=== PATIENT | male | born 1970 | race Caucasian/White ===

== ENCOUNTER 2021-11-24 17:00 | Emergency (ER) | payer OTHER ==
[2021-11-24 21:58] LABS: HEMOGLOBIN 15.8 gm/dl (14.0-17.5); RED BLOOD COUNT 5.04 M/UL (4.20-5.50); WHITE BLOOD COUNT 7.9 K/UL (4.5-11.0)
[2021-11-24 22:20] LABS: BUN/CREATININE RATIO 12 (0-10)
[2021-11-25] MEDS ORDERED: GLUCOPHAGE 500500 MG GT (01:58)
== END 2021-11-25 02:07 | disposition home or self-care (01) ==
LOC: ER1 17:00
PROVIDERS: Physician Assistant
DX: E11.65 Type 2 diabetes mellitus with hyperglycemia (principal); R63.4 Abnormal weight loss; F17.290 Nicotine dependence, other tobacco product, uncomplicated
CPT/HCPCS: 80053; 82962; 83036; 85025; 99284